=== PATIENT | male | born 1980 | race Caucasian/White ===

== ENCOUNTER 2018-03-11 19:42 | Emergency (ER) | payer BC, OTHER ==
[2018-03-11] MEDS ORDERED: Ampicillin/Sulbactam Na 3 GM in Sodium Chloride 0.9% 100 ML IV ONE (20:32)
--- NOTE | 2018-03-11 20:38 | EDM.PDOC ---
ED HPI GENERAL MEDICAL PROBLEM - General Chief Complaint: Skin Complaint Stated Complaint: LUMP IN GROIN AREA Time Seen by Provider: 03/11/18 20:16 Source of Information: Reports: Patient, RN Notes Reviewed History Limitations: Reports: No Limitations - History of Present Illness INITIAL COMMENTS - FREE TEXT/NARRATIVE: The patient states that he developed a painful bump to his right anterior medial buttock this past 03/09/2018. He states that he sat on the toilet, and felt an internal "pop", and ever since then, the redness and swelling has extended, now up to his right inguinal area. He has not noticed any drainage from the area. He has had a subjective fever. He reports low back pain, but denies any urinary symptoms. He states that he has been taking ibuprofen to control the pain. He has not attempted to treat the area, such as with poking it with a needle. No prior similar symptoms. The patient does not have a PCP. Treatments FOOD PACKER: Reports: Other (see below) Other Treatments FOOD PACKER: tylenol.motrin, bath soaks Right Groin Pain Score (Numeric/FACES): 7 - Related Data Allergies Allergy/AdvReac Type Severity Reaction Status Date / Time No Known Allergies Allergy Verified 03/11/18 20:18 Home Meds: Home Meds Amoxicillin/Potassium Clav [Augmentin 875-125 Tablet] 1 tab PO Q12H #20 tablet 03/11/18 [Rx] Past Medical History - Past Surgical History HEENT Surgical History: Reports: Oral Surgery (wisdom teeth extraction) Musculoskeletal Surgical History: Reports: Carpal Tunnel (bilateral) Social & Family History - Tobacco Use Smoking Status *Q: Current Every Day Smoker Years of Tobacco use: 19 Packs/Tins Daily: 1 Packs/Tins Daily Comment: Down from 1.5 ppd - Caffeine Use Caffeine Use: Reports: Coffee, Energy Drinks, Soda - Alcohol Use Alcohol Use History: No - Recreational Drug Use Recreational Drug Use: No - Living Situation & Occupation Living situation: Reports: Single, with Significant Other (Girlfriend) Occupation: Employed ([employer]) ED ROS GENERAL - Review of Systems Review Of Systems: ROS reveals no pertinent complaints other than HPI. ED EXAM, SKIN/RASH Exam: See Below Exam Limited By: No Limitations General Appearance: Alert, WD/WN, No Apparent Distress Rectal (Males) Exam: Other (Swelling, erythema, and tenderness to the medial anterior right buttock, that does not extend to the anus, but does extend anteriorly to the right inguinal area, most consistent with a perianal abscess) Course - Vital Signs Last Recorded V/S: Last Vital Signs Temp 36.7 C 03/11/18 20:21 Pulse 92 03/11/18 20:21 Resp 20 03/11/18 20:21 BP 102/68 03/11/18 20:21 Pulse Ox 97 03/11/18 20:21 - Orders/Labs/Meds Orders: Active Orders 24 hr Category Date Time Status Pelvis w Cont [CT] Stat Exams 03/11/18 20:30 Taken Sodium Chloride 0.9% [Normal Saline] 1,000 ml Med 03/11/18 20:45 Active IV ASDIRECTED Medication Orders Sodium Chloride (Normal Saline) 1,000 mls @ 150 mls/hr IV ASDIRECTED TODD Last Admin: 03/11/18 21:10 Dose: 150 mls/hr Labs: Laboratory Tests 03/11/18 03/11/18 Range/Units 20:41 20:41 WBC 33.70 H (4.23-9.07) K/mm3 RBC 5.23 (4.63-6.08) M/mm3 Hgb 14.2 (13.7-17.5) gm/L Hct 42.1 (40.1-51.0) % MCV 80.5 (79.0-92.2) fl MCH 27.2 (25.7-32.2) pg MCHC 33.7 (32.2-35.5) g/dl RDW Std Deviation 42.7 (35.1-43.9) fL Plt Count 308 (163-337) K/mm3 MPV 9.4 (9.4-12.3) fl Neutrophils % (Manual) 84 H (40-60) % Band Neutrophils % 0 (0-10) % Lymphocytes % (Manual) 6 L (20-40) % Atypical Lymphs % 0 % Monocytes % (Manual) 10 (2-10) % Eosinophils % (Manual) 0 L (0.8-7.0) % Basophils % (Manual) 0 L (0.2-1.2) Platelet Estimate Adequate Plt Morphology Comment Normal RBC Morph Comment Normal Sodium 137 (136-145) mEq/L Potassium 3.5 (3.5-5.1) mEq/L Chloride 101 (98-107) mEq/L Carbon Dioxide 25 (21-32) mEq/L Anion Gap 14.5 (5-15) BUN 14 (7-18) mg/dL Creatinine 1.4 H (0.7-1.3) mg/dL Est Cr Clr Drug Dosing 75.32 mL/min Estimated GFR (MDRD) 57 (>60) mL/min BUN/Creatinine Ratio 10.0 L (14-18) Glucose 113 H (74-106) mg/dL Calcium 8.6 (8.5-10.1) mg/dL Total Bilirubin 0.8 (0.2-1.0) mg/dL AST 13 L (15-37) U/L ALT 18 (16-63) U/L Alkaline Phosphatase 96 (46-116) U/L Total Protein 7.1 (6.4-8.2) g/dl Albumin 3.4 (3.4-5.0) g/dl Globulin 3.7 gm/dL Albumin/Globulin Ratio 0.9 L (1-2) Meds: Medications Generic Name Dose Route Start Last Admin Trade Name Freq PRN Reason Stop Dose Admin Sodium Chloride 1,000 mls @ 150 mls/hr 03/11/18 20:45 03/11/18 21:10 Normal Saline IV 150 mls/hr ASDIRECTED TODD Administration Discontinued Medications Generic Name Dose Route Start Last Admin Trade Name Freq PRN Reason Stop Dose Admin Ampicillin Sodium/Sulbactam 100 mls @ 200 mls/hr 03/11/18 20:32 03/11/18 21: 10 Sodium 3 gm/ Sodium Chloride IV 03/11/18 21:01 200 mls/hr ONETIME ONE Administration Iopamidol 125 ml 03/11/18 20:51 03/11/18 21:03 Isovue-300 (61%) IVPUSH 03/11/18 20:52 125 ml ONETIME ONE Administration Sodium Chloride 10 ml 03/11/18 20:51 03/11/18 21:04 Saline Flush FLUSH 03/11/18 20:52 10 ml ONETIME ONE Administration - Re-Assessments/Exams Free Text/Narrative Re-Assessment/Exam: 03/11/18 20:33 The patient has swelling, erythema, and tenderness to his right buttock, just lateral to the anterior gluteal cleft, that extends towards his right inguinal region. I suspect that the patient is suffering from a perianal infection, possibly an abscess. In addition to some blood work, I have ordered a CT scan of the pelvis with IV contrast to better elucidate the extent of the infection, and I have ordered Unasyn 3 g. 03/11/18 21:57 CT of the pelvis with IV contrast is read by [facility] as: Right posterior perineal 12 mm abscess. Subcutaneous fatty tissue inflammatory change. No soft tissue gas. 03/11/18 22:07 Test results discussed with the patient. I'm concerned about the patient's elevated WBC count of 33.7, however, there is 0% bandemia, therefore this is likely due to demargination. A prescription for Augmentin will be sent to the [facility] pharmacy, and I would like the patient to follow-up with Dr. Soler at the next available appointment, as treatment of this abscess may require drainage. Departure - Departure Time of Disposition: 22:09 Disposition: Home, Self-Care 01 Condition: Fair Clinical Impression: Perineal abscess - Discharge Information *PRESCRIPTION DRUG MONITORING PROGRAM REVIEWED*: Not Applicable *COPY OF PRESCRIPTION DRUG MONITORING REPORT IN PATIENT TEJAS: Not Applicable Referrals: Trevin Soler MD [Physician] - Forms: ED Department Discharge Additional Instructions: You were seen in the emergency room for pain, swelling, and redness to your right buttock, extending up to your right groin. Workup in the ER included blood work and a CT scan of your pelvis with IV contrast. The CT scan confirmed that you have an infection in the soft tissue of your buttock. You were treated with the IV antibiotic Unasyn in the ER. A prescription for the oral antibiotic Augmentin has been sent to the [facility], [address] [place], [place] [address], located just south and across the [address] from [facility]. Take one tablet every 12 hours, starting tomorrow morning, 03/12/2018, as prescribed. Finish the entire prescription unless told otherwise by a doctor. Take [id number] ibuprofen, 2-3 tablets (400-600 mg) every 8 hours, with food, as needed for discomfort Follow-up with the surgeon Dr. Trevin Soler at the next available appointment. If any other problems, please do not hesitate to return to the ER. - My Orders Last 24 Hours: My Active Orders 03/11/18 20:30 Pelvis w Cont [CT] Stat 03/11/18 20:45 Sodium Chloride 0.9% [Normal Saline] 1,000 ml IV ASDIRECTED - Assessment/Plan Last 24 Hours: My Active Orders 03/11/18 20:30 Pelvis w Cont [CT] Stat 03/11/18 20:45 Sodium Chloride 0.9% [Normal Saline] 1,000 ml IV ASDIRECTED
[2018-03-11] MEDS ORDERED: Sodium Chloride 0.9% 1,000 ML IV SCH (20:45)
[2018-03-11] MEDS ORDERED: Sodium Chloride 0.9% 10 ML Syringe FLUSH ONE (20:51)
[2018-03-11] MEDS ORDERED: Iopamidol 612 MG/ML 150 ML Bottle IVPUSH ONE (20:51)
--- NOTE | 2018-03-14 07:49 | CT ---
CT pelvis Technique: Multiple axial sections were obtained from above the iliac crests inferiorly through the pubic symphysis. Intravenous contrast was utilized. No oral contrast has been given. Findings: Small abnormality is seen within the medial right buttock below the skin measuring 2.0 cm which is felt compatible with a small superficial abscess. Surrounding inflammatory change is seen within the subcutaneous fat. No intrapelvic abnormality is seen. Appendix is normal in size. Bone window settings were reviewed which appear within normal limits for the patient's age. Impression: 1. Small superficial abscess within the medial right buttock with surrounding inflammatory change noted on the right side. Diagnostic code #3 I agree with preliminary report from [facility], finalized on 03/11/18, 10:24 PM Central Time [facility]
== END 2018-03-11 22:24 | disposition home or self-care (01) ==
LOC: JD.ED 19:42
DX: L02.215 Cutaneous abscess of perineum (principal); F17.210 Nicotine dependence, cigarettes, uncomplicated
CPT/HCPCS: 36415; 72193; 80053; 85007; 85027; 96361; 96365; 99284; J0295; J7030; J7040; J7050; Q9967

== ENCOUNTER 2018-03-13 20:44 | Inpatient (IN) | payer BC, OTHER ==
--- NOTE | 2018-03-13 21:55 | EDM.PDOC ---
ED HPI GENERAL MEDICAL PROBLEM - General Chief Complaint: Skin Complaint Stated Complaint: Groin pain here yesterday Time Seen by Provider: 03/13/18 20:47 Source of Information: Reports: Patient, Old Records (ED 03/11/2018), RN Notes Reviewed History Limitations: Reports: No Limitations - History of Present Illness INITIAL COMMENTS - FREE TEXT/NARRATIVE: Medical records indicate that the patient was seen by me in this ED on 2017 with a complaint at that time of a painful bump to his right anterior medial buttock that developed on 03/09/2018. He stated at that time that he had sat on the toilet on 03/09/2018 and felt an internal "pop", and that ever since then, the redness and swelling had extended, then up to his right inguinal area. He had not noticed any drainage. He had a subjective fever, but was afebrile in the ED. On examination, the patient had swelling, erythema, and tenderness to the medial anterior right buttock that did not extend to his anus , but did extend anteriorly to his right inguinal area. Workup in the ED included a CBC, CMP, and a CT of the pelvis with IV contrast. The patient's WBC count returned substantially elevated at 33.7, but with 0% bandemia. His creatinine was noted to be elevated at 1.4. The remainder of his blood work was unremarkable. The CT scan of his pelvis was read as a right posterior perineal 12 mm abscess, subcutaneous fatty tissue inflammatory change, no soft tissue gas. The patient was treated with 3 g of IV Unasyn, then discharged home with a prescription for Augmentin 875/125, 1 tab po Q 12 and a referral to follow up with Dr. Soler as an outpatient. The patient now returns to the ED, stating that his symptoms have worsened, despite taking the Augmentin as prescribed. The redness has extended to his scrotum, and the swelling has gotten worse. He believes that on his way to the ED tonight, around 20:45, something popped, and he can now feel liquid running down his leg. He again complains of subjective fever, but is afebrile here in the ED. He also states that he feels "disoriented, by which he means that he just doesn't feel right. The patient does not have a PCP. Right Pelvic Pain Score (Numeric/FACES): 10 - Related Data Allergies Allergy/AdvReac Type Severity Reaction Status Date / Time No Known Allergies Allergy Verified 03/11/18 20:18 Home Meds: Home Meds Amoxicillin/Potassium Clav [Augmentin 875-125 Tablet] 1 tab PO Q12H #20 tablet 03/11/18 [Rx] Past Medical History - Past Surgical History HEENT Surgical History: Reports: Oral Surgery (wisdom teeth extraction) Musculoskeletal Surgical History: Reports: Carpal Tunnel (bilateral) Social & Family History - Tobacco Use Smoking Status *Q: Current Every Day Smoker Years of Tobacco use: 19 Packs/Tins Daily: 1 Packs/Tins Daily Comment: Down from 1.5 ppd - Caffeine Use Caffeine Use: Reports: Coffee, Energy Drinks, Soda - Alcohol Use Alcohol Use History: No - Recreational Drug Use Recreational Drug Use: No - Living Situation & Occupation Living situation: Reports: Single, with Significant Other (Girlfriend) Occupation: Employed ([employer]) ED ROS GENERAL - Review of Systems Review Of Systems: ROS reveals no pertinent complaints other than HPI. ED EXAM, SKIN/RASH Exam: See Below Exam Limited By: No Limitations General Appearance: Alert, WD/WN, No Apparent Distress Skin: Other (There is significant swelling and erythema that extends from the right medial buttock, anteriorly, to the right inguinal area, involving the entire scrotum. There is an area of drainage from the medial buttock by the perineal cleft, draining pus.) Course - Vital Signs Last Recorded V/S: Last Vital Signs Temp 36.2 C 03/13/18 20:56 Pulse 98 03/13/18 22:25 Resp 18 03/13/18 22:25 BP 134/74 03/13/18 22:25 Pulse Ox 97 03/13/18 22:25 - Orders/Labs/Meds Orders: Active Orders 24 hr Category Date Time Status Admission Status [Patient Status] [ADT] Routine ADT 03/13/18 22:36 Ordered Clindamycin Phosphate [Cleocin] 900 mg Med 03/13/18 21:58 Active Sodium Chloride 0.9% [Normal Saline] 100 ml IV ONETIME Sodium Chloride 0.9% [Normal Saline] 1,000 ml Med 03/13/18 22:00 Active IV ASDIRECTED Medication Orders Clindamycin Phosphate 900 mg/ (Sodium Chloride) 106 mls @ 100 mls/hr IV ONETIME ONE Stop: 03/13/18 23:01 Last Admin: 03/13/18 22:12 Dose: 100 mls/hr Sodium Chloride (Normal Saline) 1,000 mls @ 100 mls/hr IV ASDIRECTED TODD Last Admin: 03/13/18 22:12 Dose: 100 mls/hr Meds: Medications Generic Name Dose Route Start Last Admin Trade Name Freq PRN Reason Stop Dose Admin Clindamycin Phosphate 900 mg/ 106 mls @ 100 mls/hr 03/13/18 21:58 03/13/18 22 :12 Sodium Chloride IV 03/13/18 23:01 100 mls/hr ONETIME ONE Administration Sodium Chloride 1,000 mls @ 100 mls/hr 03/13/18 22:00 03/13/18 22:12 Normal Saline IV 100 mls/hr ASDIRECTED TODD Administration Discontinued Medications Generic Name Dose Route Start Last Admin Trade Name Freq PRN Reason Stop Dose Admin Hydromorphone HCl 0.5 mg 03/13/18 22:01 03/13/18 22:17 Dilaudid IVPUSH 03/13/18 22:02 0.5 mg ONETIME ONE Administration - Re-Assessments/Exams Free Text/Narrative Re-Assessment/Exam: 03/13/18 21:52 The degree of erythema and swelling has expanded considerably since I saw him on 03/11/2018, indicating a failure of outpatient treatment. The patient will need to be admitted for IV antibiotics and surgical consultation. Case discussed with Dr. Soler at 21:49. He agrees to admit the patient, however, he stated that he will be going off-service in the morning, and that it will be Dr. Montgomery who sees him in the morning. He recommended that we treat the patient with clindamycin, keep him NPO, give him IV fluid, and pain medication. 03/13/18 21:59 I have ordered clindamycin 900 mg IV now, and will write bridge orders for 600 mg Q 8. Departure - Departure Time of Disposition: 21:53 Disposition: Admitted As Inpatient 68 Condition: Fair Clinical Impression: Perineal abscess, Failure of outpatient treatment - Discharge Information *PRESCRIPTION DRUG MONITORING PROGRAM REVIEWED*: Not Applicable *COPY OF PRESCRIPTION DRUG MONITORING REPORT IN PATIENT TEJAS: Not Applicable Referrals: Fredy Montgomery MD [Physician] - Trevin Soler MD [Physician] - - My Orders Last 24 Hours: My Active Orders 03/13/18 21:58 Clindamycin Phosphate [Cleocin] 900 mg Sodium Chloride 0.9% [Normal Saline] 100 ml IV ONETIME 03/13/18 22:00 Sodium Chloride 0.9% [Normal Saline] 1,000 ml IV ASDIRECTED 03/13/18 22:36 Admission Status [Patient Status] [ADT] Routine - Assessment/Plan Last 24 Hours: My Active Orders 03/13/18 21:58 Clindamycin Phosphate [Cleocin] 900 mg Sodium Chloride 0.9% [Normal Saline] 100 ml IV ONETIME 03/13/18 22:00 Sodium Chloride 0.9% [Normal Saline] 1,000 ml IV ASDIRECTED 03/13/18 22:36 Admission Status [Patient Status] [ADT] Routine
[2018-03-13] MEDS ORDERED: Clindamycin Phosphate 900 MG in Sodium Chloride 0.9% 100 ML IV ONE (21:58)
[2018-03-13] MEDS ORDERED: HYDROmorphone 0.5 MG/0.5 ML SYRINGE IVPUSH ONE (22:01)
[2018-03-13] MEDS: Sodium Chloride 0.9% 1,000 ML IV SCH (22:12)
[2018-03-13] MEDS ORDERED: Ondansetron 4 MG/2 ML SDV IVPUSH PRN (23:23)
[2018-03-13] MEDS ORDERED: Sodium Chloride 0.9% 1,000 ML IV SCH (23:30)
[2018-03-14] MEDS: HYDROmorphone 0.5 MG/0.5 ML Syringe IVPUSH PRN ×6 (00:26→21:29)
[2018-03-14] MEDS: Sodium Chloride 0.9% 1,000 ML IV SCH (02:44)
[2018-03-14] MEDS: Clindamycin Phosphate 600 MG in Sodium Chloride 0.9% 100 ML IV SCH ×3 (05:21→21:13)
--- NOTE | 2018-03-14 08:57 | PCM.PN ---
- General Info Date of Service: 03/14/18 - Patient Data Vitals - Most Recent: Last Vital Signs Temp 99.9 F 03/14/18 07:33 Pulse 85 03/14/18 07:33 Resp 16 03/14/18 07:33 BP 103/62 03/14/18 07:33 Pulse Ox 92 L 03/14/18 07:33 Weight - Most Recent: 82.781 kg I&O - Last 24 Hours: Intake & Output 03/13/18 03/14/18 03/14/18 23:59 07:59 15:59 Intake Total 464 Output Total 350 Balance 114 Lab Results Last 24 Hours: Laboratory Results - last 24 hr 03/14/18 03/14/18 Range/Units 05:15 05:15 WBC 19.46 H (4.23-9.07) K/mm3 RBC 4.54 L (4.63-6.08) M/mm3 Hgb 12.4 L (13.7-17.5) gm/L Hct 36.2 L (40.1-51.0) % MCV 79.7 (79.0-92.2) fl MCH 27.3 (25.7-32.2) pg MCHC 34.3 (32.2-35.5) g/dl RDW Std Deviation 41.9 (35.1-43.9) fL Plt Count 280 (163-337) K/mm3 MPV 10.4 (9.4-12.3) fl Sodium 137 (136-145) mEq/L Potassium 3.2 L (3.5-5.1) mEq/L Chloride 103 (98-107) mEq/L Carbon Dioxide 25 (21-32) mEq/L Anion Gap 12.2 (5-15) BUN 16 (7-18) mg/dL Creatinine 1.2 (0.7-1.3) mg/dL Est Cr Clr Drug Dosing 87.87 mL/min Estimated GFR (MDRD) > 60 (>60) mL/min BUN/Creatinine Ratio 13.3 L (14-18) Glucose 102 (74-106) mg/dL Calcium 8.2 L (8.5-10.1) mg/dL Total Bilirubin 0.4 (0.2-1.0) mg/dL AST 12 L (15-37) U/L ALT 14 L (16-63) U/L Alkaline Phosphatase 97 (46-116) U/L Total Protein 6.5 (6.4-8.2) g/dl Albumin 2.5 L (3.4-5.0) g/dl Globulin 4.0 gm/dL Albumin/Globulin Ratio 0.6 L (1-2) Med Orders - Current: Current Medications Hydromorphone HCl (Dilaudid) 0.5 mg IVPUSH Q1H PRN PRN Reason: Pain Last Admin: 03/14/18 08:15 Dose: 0.5 mg Clindamycin Phosphate 600 mg/ (Sodium Chloride) 104 mls @ 100 mls/hr IV Q8HR [facility] Last Admin: 03/14/18 05:21 Dose: 100 mls/hr Sodium Chloride (Normal Saline) 1,000 mls @ 100 mls/hr IV ASDIRECTED [facility] Last Admin: 03/14/18 05:21 Dose: 100 mls/hr Ondansetron HCl (Zofran) 4 mg IVPUSH Q6H PRN PRN Reason: Nausea Discontinued Medications Hydromorphone HCl (Dilaudid) 0.5 mg IVPUSH ONETIME ONE Stop: 03/13/18 22:02 Last Admin: 03/13/18 22:17 Dose: 0.5 mg Clindamycin Phosphate 900 mg/ (Sodium Chloride) 106 mls @ 100 mls/hr IV ONETIME ONE Stop: 03/13/18 23:01 Last Admin: 03/13/18 22:12 Dose: 100 mls/hr Sodium Chloride (Normal Saline) 1,000 mls @ 100 mls/hr IV ASDIRECTED [facility] Last Infusion: 03/14/18 02:44 Dose: Infused - Problem List Review Problem List Initiated/Reviewed/Updated: Yes - My Orders Last 24 Hours: My Active Orders 03/14/18 08:53 Verify Patient Consent Obtain [RC] ASDIRECTED 03/14/18 08:55 Schedule Procedure [COMM] Urgent - Plan Plan:: H&P dictated JMB
--- NOTE | 2018-03-14 09:20 | PCM.PREANE ---
Preanesthetic Assessment - Anesthesia/Transfusion/Family Hx Anesthesia History: Prior Anesthesia Without Reaction Family History of Anesthesia Reaction: No Transfusion History: No Prior Transfusion(s) Intubation History: Unknown - Review of Systems General: Fever, Chills Pulmonary: No Symptoms (smoker: 1.5 ppd/times 19 years) Cardiovascular: No Symptoms Gastrointestinal: No Symptoms, Decreased Appetite Neurological: No Symptoms Other: Reports: None - Physical Assessment NPO Status Date: 03/13/18 NPO Status Time: 15:00 Pulse: 85 O2 Sat by Pulse Oximetry: 92 Respiratory Rate: 16 Blood Pressure: 103/62 Temperature: 37.7 C Vital Signs: Last Vital Signs Temp 37.7 C 03/14/18 07:33 Pulse 85 03/14/18 07:33 Resp 16 03/14/18 07:33 BP 103/62 03/14/18 07:33 Pulse Ox 92 L 03/14/18 07:33 Height: 1.78 m Weight: 82.781 kg ASA Class: 2 Mental Status: Alert & Oriented x3 Airway Class: Mallampati = 2 Dentition: Reports: Normal Dentition, Caries Thyro-Mental Finger Breadths: 3 Mouth Opening Finger Breadths: 3 ROM/Head Extension: Full Lungs: Clear to Auscultation, Normal Respiratory Effort Cardiovascular: Regular Rate, Regular Rhythm, No Murmurs - Lab Values: Laboratory Last Values WBC 19.46 K/mm3 (4.23-9.07) H 03/14/18 05:15 RBC 4.54 M/mm3 (4.63-6.08) L 03/14/18 05:15 Hgb 12.4 gm/L (13.7-17.5) L 03/14/18 05:15 Hct 36.2 % (40.1-51.0) L 03/14/18 05:15 MCV 79.7 fl (79.0-92.2) 03/14/18 05:15 MCH 27.3 pg (25.7-32.2) 03/14/18 05:15 MCHC 34.3 g/dl (32.2-35.5) 03/14/18 05:15 RDW Std Deviation 41.9 fL (35.1-43.9) 03/14/18 05:15 Plt Count 280 K/mm3 (163-337) 03/14/18 05:15 MPV 10.4 fl (9.4-12.3) 03/14/18 05:15 Sodium 137 mEq/L (136-145) 03/14/18 05:15 Potassium 3.2 mEq/L (3.5-5.1) L 03/14/18 05:15 Chloride 103 mEq/L (98-107) 03/14/18 05:15 Carbon Dioxide 25 mEq/L (21-32) 03/14/18 05:15 Anion Gap 12.2 (5-15) 03/14/18 05:15 BUN 16 mg/dL (7-18) 03/14/18 05:15 Creatinine 1.2 mg/dL (0.7-1.3) 03/14/18 05:15 Est Cr Clr Drug Dosing 87.87 mL/min 03/14/18 05:15 Estimated GFR (MDRD) > 60 mL/min (>60) 03/14/18 05:15 BUN/Creatinine Ratio 13.3 (14-18) L 03/14/18 05:15 Glucose 102 mg/dL (74-106) 03/14/18 05:15 Calcium 8.2 mg/dL (8.5-10.1) L 03/14/18 05:15 Total Bilirubin 0.4 mg/dL (0.2-1.0) 03/14/18 05:15 AST 12 U/L (15-37) L 03/14/18 05:15 ALT 14 U/L (16-63) L 03/14/18 05:15 Alkaline Phosphatase 97 U/L (46-116) 03/14/18 05:15 Total Protein 6.5 g/dl (6.4-8.2) 03/14/18 05:15 Albumin 2.5 g/dl (3.4-5.0) L 03/14/18 05:15 Globulin 4.0 gm/dL 03/14/18 05:15 Albumin/Globulin Ratio 0.6 (1-2) L 03/14/18 05:15 All labs reviewed and noted and within acceptable ranges to proceed with scheduled procedure. - Allergies Allergies/Adverse Reactions: Allergies Allergy/AdvReac Type Severity Reaction Status Date / Time No Known Allergies Allergy Verified 03/11/18 20:18 - Anesthesia Plan Pre-Op Medication Ordered: None - Acknowledgements Anesthesia Type Planned: General Anesthesia Pt an Appropriate Candidate for the Planned Anesthesia: Yes Alternatives and Risks of Anesthesia Discussed w Pt/Guardian: Yes Pt/Guardian Understands and Agrees with Anesthesia Plan: Yes PreAnesthesia Questionnaire - Past Health History Medical/Surgical History: Denies Medical/Surgical History - Past Surgical History HEENT Surgical History: Reports: Oral Surgery Musculoskeletal Surgical History: Reports: Carpal Tunnel - SUBSTANCE USE Smoking Status *Q: Current Every Day Smoker Tobacco Use Within Last Twelve Months: Cigarettes Second Hand Smoke Exposure: No Recreational Drug Use History: No - HOME MEDS Home Medications: Home Meds Amoxicillin/Potassium Clav [Augmentin 875-125 Tablet] 1 tab PO Q12H #20 tablet 03/11/18 [Rx] - CURRENT (IN HOUSE) MEDS Current Meds: Current Medications Hydromorphone HCl (Dilaudid) 0.5 mg IVPUSH Q1H PRN PRN Reason: Pain Last Admin: 03/14/18 08:15 Dose: 0.5 mg Clindamycin Phosphate 600 mg/ (Sodium Chloride) 104 mls @ 100 mls/hr IV Q8HR [facility] Last Admin: 03/14/18 05:21 Dose: 100 mls/hr Sodium Chloride (Normal Saline) 1,000 mls @ 100 mls/hr IV ASDIRECTED [facility] Last Admin: 03/14/18 05:21 Dose: 100 mls/hr Ondansetron HCl (Zofran) 4 mg IVPUSH Q6H PRN PRN Reason: Nausea Discontinued Medications Hydromorphone HCl (Dilaudid) 0.5 mg IVPUSH ONETIME ONE Stop: 03/13/18 22:02 Last Admin: 03/13/18 22:17 Dose: 0.5 mg Clindamycin Phosphate 900 mg/ (Sodium Chloride) 106 mls @ 100 mls/hr IV ONETIME ONE Stop: 03/13/18 23:01 Last Admin: 03/13/18 22:12 Dose: 100 mls/hr Sodium Chloride (Normal Saline) 1,000 mls @ 100 mls/hr IV ASDIRECTED [facility] Last Infusion: 03/14/18 02:44 Dose: Infused
[2018-03-14] MEDS ORDERED: Midazolam 1 MG/ML 2 ML SDV ONE (09:47)
[2018-03-14] MEDS ORDERED: Propofol 200 MG/20 ML SDV ONE (09:47)
[2018-03-14] MEDS ORDERED: fentaNYL 250 MCG/5 ML SDV ONE (09:48)
[2018-03-14] MEDS ORDERED: Ketamine 500 mg/10 ML MDV ONE (09:48)
[2018-03-14] MEDS ORDERED: Lidocaine 1% with EPINEPHrine 1:100,000 20 ML MDV ONE (09:58)
[2018-03-14] MEDS ORDERED: Bupivacaine 0.5%/EPINEPHrine 1:200,000 50 ML MDV ONE (09:58)
[2018-03-14] MEDS: Lactated Ringers 1,000 ML IV SCH ×2 (10:15→13:01)
[2018-03-14] MEDS ORDERED: Ondansetron 4 MG/2 ML SDV ONE (10:38)
[2018-03-14] MEDS ORDERED: Lidocaine 1% 4 ML ONE (10:38)
[2018-03-14] MEDS ORDERED: Dexamethasone 4 MG/ML 5 ML MDV ONE (10:38)
[2018-03-14] MEDS ORDERED: HYDROmorphone 0.5 MG/0.5 ML Syringe ONE (10:42)
--- NOTE | 2018-03-14 10:59 | PCM.OPNOTE ---
- General Post-Op/Procedure Note Date of Surgery/Procedure: 03/14/18 Operative Procedure(s): I&D rt groin abscess Pre Op Diagnosis: rt groin abscess Post-Op Diagnosis: Same Anesthesia Technique: General LMA Primary Surgeon: Fredy Montgomery EBL in mLs: 25 Complications: None Condition: Good Free Text/Narrative:: Intake & Output 03/13/18 03/14/18 03/14/18 23:59 07:59 15:59 Intake Total 464 Output Total 350 Balance 114
--- NOTE | 2018-03-14 11:21 | PCM.POSTAN ---
POST ANESTHESIA ASSESSMENT - MENTAL STATUS Mental Status: Alert, Oriented - VITAL SIGNS Pulse Rate: 90 SaO2: 96 Resp Rate: 10 Blood Pressure: 111/68 Temperature: 37.6 C - RESPIRATORY Respiratory Status: Respiratory Rate WNL, Airway Patent, O2 Saturation Stable, Supplemental Oxygen - CARDIOVASCULAR CV Status: Pulse Rate WNL, Blood Pressure Stable - GASTROINTESTINAL GI Status: No Symptoms - PAIN Pain Score: 0 - POST OP HYDRATION Hydration Status: Adequate & Stable
[2018-03-14] MEDS ORDERED: Ondansetron 4 MG/2 ML SDV IVPUSH PRN (11:22)
[2018-03-14] MEDS ORDERED: fentaNYL 100 MCG/2 ML SDV IVPUSH PRN (11:22)
[2018-03-14] MEDS ORDERED: HYDROmorphone 0.5 MG/0.5 ML Syringe IVPUSH ONE (11:22)
[2018-03-14] MEDS ORDERED: diphenhydrAMINE 50 MG/ML SDV IVPUSH PRN (11:22)
[2018-03-14] MEDS ORDERED: Meperidine 50 MG/ML Vial IVPUSH PRN (11:22)
[2018-03-14] MEDS ORDERED: Albuterol 0.083% 2.5 MG/3 ML Neb Soln NEB ONE (12:32)
--- NOTE | 2018-03-14 14:41 | HP ---
DATE OF ADMISSION: 03/13/2018 HISTORY OF PRESENT ILLNESS: This is a 38-year-old who came in yesterday to the ER with pain, swelling, erythema, and tenderness to the medial anterior right buttocks that extended into the groin with swelling and draining and is most prominent in the right inguinal area. CT scan was done in the ER, has right posterior perineal 12 abscess in the subcuticular tissue and elevated white count of 33,000. The patient's states he was in the emergency room on the with complaint at that time of pain from bump in the right anteromedial buttocks developed on the . He stated that he went to the toilet on the , felt a popping noise, and ever since there is redness and swelling that has developed and extended, it is now draining. The patient was seen in the emergency room and started with antibiotics. He had in his previous emergency room discharge given IV Unasyn and Augmentin with followup visit, but he returned to the ER. PAST MEDICAL HISTORY: [place] tooth extraction, bilateral carpal tunnel surgery, current everyday smoker, coffee drinker and soda. REVIEW OF SYSTEMS: No chest pain, shortness of breath, cough, hoarseness, wheezing, fainting, weakness, numbness, convulsions, nausea, vomiting, or indigestion. CURRENT MEDICATIONS: Per medication reconciliation form, which consist of clindamycin. FAMILY HISTORY: Negative. PHYSICAL EXAMINATION: VITAL SIGNS: Temperature is 36, pulse 98, respirations 18, and blood pressure 134/74. HEENT: Eyes, sclerae white. Extraocular muscle motion normal. Oral cavity, healthy mucous membranes with mouth and tongue. NECK: Supple. No nodes. No thyromegaly. Trachea midline. LUNGS: Clear. No rales, rhonchi, fremitus, or dullness. HEART: Heart tones regular rate. No S3, S4, jugular venous distention, or murmurs. ABDOMEN: Soft. No tenderness, guarding, rebound, organomegaly, or pulsatile masses. UPPER AND LOWER EXTREMITIES: No angulation deformities. Groin shows a lot of swelling in the right inguinal region with drainage, some erythema extending down into the perineum. LABORATORY DATA: Shows a white count now 19,000, hemoglobin 12, and platelet count is 280. Chemistry shows low potassium 3.7, sodium 137, CO2 of 25, BUN is 16, and creatinine 1.2. Total bilirubin normal. AST is 12. CT scan which was done on the shows a small superficial abscess in the medial right buttocks with surrounding inflammatory changes noted on the right side. It measures 2 cm. There has been a significant change since the CT scan. ASSESSMENT: Abscess in the perineum extending into the right groin. Possible plan is for incision and drainage and culture. Risks and complications discussed with the patient. He understands and consents. MMODAL /[id number]
[2018-03-15] MEDS: HYDROmorphone 0.5 MG/0.5 ML Syringe IVPUSH PRN ×3 (00:01→09:30)
[2018-03-15] MEDS: Clindamycin Phosphate 600 MG in Sodium Chloride 0.9% 100 ML IV SCH (05:00)
--- NOTE | 2018-03-15 08:09 | PCM48HPAN ---
Post Anesthesia Note - EVALUATION WITHIN 48HRS OF ANESTHETIC Vital Signs in Normal Range: Yes Patient Participated in Evaluation: Yes Respiratory Function Stable: Yes Airway Patent: Yes Cardiovascular Function Stable: Yes Hydration Status Stable: Yes Pain Control Satisfactory: Yes Nausea and Vomiting Control Satisfactory: Yes Mental Status Recovered: Yes - COMMENTS/OBSERVATIONS Free Text/Narrative:: Doing well. Patient denies any anesthetic complications
--- NOTE | 2018-03-15 08:52 | OR ---
DATE OF OPERATION: 03/14/2018 SURGEON: Fredy Montgomery MD PREOPERATIVE DIAGNOSIS: Right groin abscess. POSTOPERATIVE DIAGNOSIS: Right groin abscess. OPERATION PERFORMED: Incision and drainage done under general anesthetic with local infiltration of 50:50 mixture of 0.5% Marcaine and 1% Xylocaine. ESTIMATED BLOOD LOSS: 25 mL. DESCRIPTION OF PROCEDURE: The patient was taken to the operating room, placed in a supine position, given a general anesthetic, and an LMA was placed. Placed in lithotomy position. The area was examined and showed an area of drainage in the groin crease inferiorly. It was not connected with the anal canal. Rectal exam was performed, that did not show any perirectal abscess. This area of drainage, the pocket extended up for about 16 cm to the groin on the right. It extended later to be into the subcuticular tissue, but not into the fascia. The patient was then prepped and draped off in a sterile fashion and the area from the draining point into the groin was opened up for about 16 cm. The area was Pulsavac'd and bleeding points were controlled with electrocautery. It was then packed with Kerlix gauze. The patient tolerated the procedure and sent to recovery room in a stable condition. ANESTHESIA: General. MMODAL /[id number]
[2018-03-15] MEDS ORDERED: Nicotine 21 MG/24 Hr Patch TRDERM SCH (11:30)
--- NOTE | 2018-03-15 12:20 | PCM.SURGPN ---
- General Info Date of Service: 03/15/18 Functional Status: Reports: Pain Controlled - Review of Systems General: Reports: No Symptoms Gastrointestinal: Reports: Constipation - Patient Data Vitals - Most Recent: Last Vital Signs Temp 97.9 F 03/15/18 09:07 Pulse 59 L 03/15/18 05:01 Resp 21 H 03/15/18 09:07 BP 100/67 03/15/18 09:07 Pulse Ox 94 L 03/15/18 05:01 Weight - Most Recent: 84.504 kg I&O - Last 24 Hours: Intake & Output 03/14/18 03/15/18 03/15/18 23:59 07:59 15:59 Intake Total 520 1000 Output Total 900 1500 Balance -380 -500 Lab Results Last 24 Hrs: Laboratory Results - last 24 hr 03/14/18 Range/Units 05:15 Neutrophils % (Manual) 60 (40-60) % Band Neutrophils % 23 H (0-10) % Lymphocytes % (Manual) 13 L (20-40) % Atypical Lymphs % 0 % Monocytes % (Manual) 4 (2-10) % Eosinophils % (Manual) 0 L (0.8-7.0) % Basophils % (Manual) 0 L (0.2-1.2) Differential Comment See note Toxic Granulation 1+ slight Platelet Estimate Adequate RBC Morph Comment Normal Toby Results Last 24 Hrs: Microbiology 03/14/18 Unknown Gram Stain - Final Groin, Right 03/14/18 10:42 Gram Stain - Final Groin, Right Med Orders - Current: Current Medications Hydromorphone HCl (Dilaudid) 0.5 mg IVPUSH Q1H PRN PRN Reason: Pain Last Admin: 03/15/18 09:30 Dose: 0.5 mg Clindamycin Phosphate 600 mg/ (Sodium Chloride) 104 mls @ 100 mls/hr IV Q8HR TODD Last Admin: 03/15/18 05:00 Dose: 100 mls/hr Miscellaneous Information (Remove Patch) 0 ea TRDERM DAILY TODD Nicotine (Habitrol) 21 mg TRDERM DAILY TODD Ondansetron HCl (Zofran) 4 mg IVPUSH Q6H PRN PRN Reason: Nausea Discontinued Medications Albuterol (Proventil Neb Soln) 2.5 mg NEB ONETIME ONE Stop: 03/14/18 12:33 Last Admin: 03/14/18 12:44 Dose: 2.5 mg Bupivacaine HCl/Epinephrine Bitart (Marcaine 0.5%/Epinephrine 1:200,000) Confirm Administered Dose 50 ml .ROUTE .STK-MED ONE Stop: 03/14/18 09:59 Last Admin: 03/14/18 10:55 Dose: 5 ml Diphenhydramine HCl (Benadryl) 25 mg IVPUSH Q6H PRN PRN Reason: Pruritis Stop: 03/14/18 19:00 Fentanyl (Sublimaze) 50 mcg IVPUSH Q5M PRN PRN Reason: Pain Stop: 03/14/18 19:00 Hydromorphone HCl (Dilaudid) 0.5 mg IVPUSH ONETIME ONE Stop: 03/13/18 22:02 Last Admin: 03/13/18 22:17 Dose: 0.5 mg Hydromorphone HCl (Dilaudid) 0.5 mg IVPUSH ONETIME ONE Stop: 03/14/18 11:23 Last Admin: 03/14/18 16:43 Dose: Not Given Clindamycin Phosphate 900 mg/ (Sodium Chloride) 106 mls @ 100 mls/hr IV ONETIME ONE Stop: 03/13/18 23:01 Last Admin: 03/13/18 22:12 Dose: 100 mls/hr Sodium Chloride (Normal Saline) 1,000 mls @ 100 mls/hr IV ASDIRECTED [facility] Last Infusion: 03/14/18 02:44 Dose: Infused Sodium Chloride (Normal Saline) 1,000 mls @ 100 mls/hr IV ASDIRECTED [facility] Last Admin: 03/14/18 05:21 Dose: 100 mls/hr Lactated Ringer's (Ringers, Lactated) 1,000 mls @ 125 mls/hr IV ASDIRECTED [facility] Last Admin: 03/14/18 13:01 Dose: 125 mls/hr Lidocaine/Epinephrine (Xylocaine 1% With Epinephrine 1:100,000) Confirm Administered Dose 20 ml .ROUTE .STK-MED ONE Stop: 03/14/18 09:59 Last Admin: 03/14/18 10:55 Dose: 5 ml Meperidine HCl (Meperidine) 12.5 mg IVPUSH ONETIME PRN PRN Reason: Shivering Stop: 03/14/18 18:00 Ondansetron HCl (Zofran) 4 mg IVPUSH ONETIME PRN PRN Reason: Nausea/Vomiting Stop: 03/14/18 19:00 - Exam Wound/Incisions: Healing Well, Erythema (improved and receding ) General: Alert, Oriented - Problem List Review Problem List Initiated/Reviewed/Updated: Yes - My Orders Last 24 Hours: Active Orders 24 hr Category Date Time Status Communication Order [RC] DAILY Care 03/15/18 10:00 Active Oxygen Therapy [RC] ASDIRECTED Care 03/14/18 11:22 Active Pulse Oximetry [RC] ASDIRECTED Care 03/14/18 11:22 Active RT Aerosol Therapy [RC] ASDIRECTED Care 03/14/18 12:32 Active Regular Diet [DIET] Diet 03/14/18 Dinner Active Nicotine [Habitrol] Med 03/15/18 11:30 Active 21 mg TRDERM DAILY Remove Patch Med 03/16/18 09:00 Active 0 ea TRDERM DAILY Medication Orders Hydromorphone HCl (Dilaudid) 0.5 mg IVPUSH Q1H PRN PRN Reason: Pain Last Admin: 03/15/18 09:30 Dose: 0.5 mg Admin: 03/15/18 05:02 Dose: 0.5 mg Admin: 03/15/18 00:01 Dose: 0.5 mg Admin: 03/14/18 21:29 Dose: 0.5 mg Admin: 03/14/18 19:01 Dose: 0.5 mg Admin: 03/14/18 08:15 Dose: 0.5 mg Admin: 03/14/18 05:21 Dose: 0.5 mg Admin: 03/14/18 02:40 Dose: 0.5 mg Admin: 03/14/18 00:26 Dose: 0.5 mg Clindamycin Phosphate 600 mg/ (Sodium Chloride) 104 mls @ 100 mls/hr IV Q8HR TODD Last Admin: 03/15/18 05:00 Dose: 100 mls/hr Infusion: 03/14/18 22:16 Dose: 100 mls/hr Admin: 03/14/18 21:13 Dose: 100 mls/hr Infusion: 03/14/18 16:50 Dose: 100 mls/hr Admin: 03/14/18 15:47 Dose: 100 mls/hr Infusion: 03/14/18 06:24 Dose: 100 mls/hr Admin: 03/14/18 05:21 Dose: 100 mls/hr Miscellaneous Information (Remove Patch) 0 ea TRDERM DAILY TODD Nicotine (Habitrol) 21 mg TRDERM DAILY TODD Ondansetron HCl (Zofran) 4 mg IVPUSH Q6H PRN PRN Reason: Nausea - Plan Plan (Free Text/Narrative):: dressing changed by nurses and wound is plate cleaner, the pain from the infection has improved with the I&D surgical site healing ass improved cultures reviewed in lab and show staph and possible an anaerob note patient is very angrey and wishes to go he feels that the incision was not necessary and that another method could have been used although is not able to say what other treatment would be available. he is concerned that he may not be able to work and he is demanding immediate discharge so that he can go home to [place]. He does not have a doctor there. He feels that he was not informed about the packing. I did state that I saw him, as testified by the nursing staff, after surgery last night and did tell him the large incision that was placed in his rt groin necessary to completely drain the abscess and that packing or VAC used to treat the open wound. He state that this never happened and that I am am not telling the truth. I have ask for a physician's name so I can send the information to this person so good care can be given. Patient does not want this and request again immediate discharge. will discharge the patient on clindamycin and ask that he give us a name of a physician to send health information to. CARMEN
--- NOTE | 2018-03-15 14:04 | PCM.SURGPN ---
- General Info Date of Service: 03/15/18 - Patient Data Vitals - Most Recent: Last Vital Signs Temp 97.9 F 03/15/18 09:07 Pulse 59 L 03/15/18 05:01 Resp 21 H 03/15/18 09:07 BP 100/67 03/15/18 09:07 Pulse Ox 94 L 03/15/18 05:01 Weight - Most Recent: 84.504 kg I&O - Last 24 Hours: Intake & Output 03/14/18 03/15/18 03/15/18 23:59 07:59 15:59 Intake Total 520 1000 Output Total 900 1500 Balance -380 -500 Toby Results Last 24 Hrs: Microbiology 03/14/18 Unknown Gram Stain - Final Groin, Right 03/14/18 10:42 Gram Stain - Final Groin, Right Anaerobic Culture - Preliminary 03/13/18 23:15 Wound Culture - Preliminary Groin, Right Staphylococcus Aureus Med Orders - Current: Current Medications Hydromorphone HCl (Dilaudid) 0.5 mg IVPUSH Q1H PRN PRN Reason: Pain Last Admin: 03/15/18 09:30 Dose: 0.5 mg Clindamycin Phosphate 600 mg/ (Sodium Chloride) 104 mls @ 100 mls/hr IV Q8HR TODD Last Admin: 03/15/18 05:00 Dose: 100 mls/hr Miscellaneous Information (Remove Patch) 0 ea TRDERM DAILY TODD Nicotine (Habitrol) 21 mg TRDERM DAILY TODD Ondansetron HCl (Zofran) 4 mg IVPUSH Q6H PRN PRN Reason: Nausea Discontinued Medications Albuterol (Proventil Neb Soln) 2.5 mg NEB ONETIME ONE Stop: 03/14/18 12:33 Last Admin: 03/14/18 12:44 Dose: 2.5 mg Bupivacaine HCl/Epinephrine Bitart (Marcaine 0.5%/Epinephrine 1:200,000) Confirm Administered Dose 50 ml .ROUTE .STK-MED ONE Stop: 03/14/18 09:59 Last Admin: 03/14/18 10:55 Dose: 5 ml Diphenhydramine HCl (Benadryl) 25 mg IVPUSH Q6H PRN PRN Reason: Pruritis Stop: 03/14/18 19:00 Fentanyl (Sublimaze) 50 mcg IVPUSH Q5M PRN PRN Reason: Pain Stop: 03/14/18 19:00 Hydromorphone HCl (Dilaudid) 0.5 mg IVPUSH ONETIME ONE Stop: 03/13/18 22:02 Last Admin: 03/13/18 22:17 Dose: 0.5 mg Hydromorphone HCl (Dilaudid) 0.5 mg IVPUSH ONETIME ONE Stop: 03/14/18 11:23 Last Admin: 03/14/18 16:43 Dose: Not Given Clindamycin Phosphate 900 mg/ (Sodium Chloride) 106 mls @ 100 mls/hr IV ONETIME ONE Stop: 03/13/18 23:01 Last Admin: 03/13/18 22:12 Dose: 100 mls/hr Sodium Chloride (Normal Saline) 1,000 mls @ 100 mls/hr IV ASDIRECTED [facility] Last Infusion: 03/14/18 02:44 Dose: Infused Sodium Chloride (Normal Saline) 1,000 mls @ 100 mls/hr IV ASDIRECTED [facility] Last Admin: 03/14/18 05:21 Dose: 100 mls/hr Lactated Ringer's (Ringers, Lactated) 1,000 mls @ 125 mls/hr IV ASDIRECTED [facility] Last Admin: 03/14/18 13:01 Dose: 125 mls/hr Lidocaine/Epinephrine (Xylocaine 1% With Epinephrine 1:100,000) Confirm Administered Dose 20 ml .ROUTE .STK-MED ONE Stop: 03/14/18 09:59 Last Admin: 03/14/18 10:55 Dose: 5 ml Meperidine HCl (Meperidine) 12.5 mg IVPUSH ONETIME PRN PRN Reason: Shivering Stop: 03/14/18 18:00 Ondansetron HCl (Zofran) 4 mg IVPUSH ONETIME PRN PRN Reason: Nausea/Vomiting Stop: 03/14/18 19:00 - Problem List Review Problem List Initiated/Reviewed/Updated: Yes - My Orders Last 24 Hours: Active Orders 24 hr Category Date Time Status Communication Order [RC] DAILY Care 03/15/18 10:00 Active Regular Diet [DIET] Diet 03/14/18 Dinner Active Nicotine [Habitrol] Med 03/15/18 11:30 Active 21 mg TRDERM DAILY Remove Patch Med 03/16/18 09:00 Active 0 ea TRDERM DAILY Medication Orders Hydromorphone HCl (Dilaudid) 0.5 mg IVPUSH Q1H PRN PRN Reason: Pain Last Admin: 03/15/18 09:30 Dose: 0.5 mg Admin: 03/15/18 05:02 Dose: 0.5 mg Admin: 03/15/18 00:01 Dose: 0.5 mg Admin: 03/14/18 21:29 Dose: 0.5 mg Admin: 03/14/18 19:01 Dose: 0.5 mg Admin: 03/14/18 08:15 Dose: 0.5 mg Admin: 03/14/18 05:21 Dose: 0.5 mg Admin: 03/14/18 02:40 Dose: 0.5 mg Admin: 03/14/18 00:26 Dose: 0.5 mg Clindamycin Phosphate 600 mg/ (Sodium Chloride) 104 mls @ 100 mls/hr IV Q8HR TODD Last Admin: 03/15/18 05:00 Dose: 100 mls/hr Infusion: 03/14/18 22:16 Dose: 100 mls/hr Admin: 03/14/18 21:13 Dose: 100 mls/hr Infusion: 03/14/18 16:50 Dose: 100 mls/hr Admin: 03/14/18 15:47 Dose: 100 mls/hr Infusion: 03/14/18 06:24 Dose: 100 mls/hr Admin: 03/14/18 05:21 Dose: 100 mls/hr Miscellaneous Information (Remove Patch) 0 ea TRDERM DAILY [facility] Nicotine (Habitrol) 21 mg TRDERM DAILY TODD Ondansetron HCl (Zofran) 4 mg IVPUSH Q6H PRN PRN Reason: Nausea - Plan Plan (Free Text/Narrative):: discharged AMA discharge summary dictated JMB
--- NOTE | 2018-03-16 08:35 | DISCH ---
ADMISSION DATE: 03/13/2018 DISCHARGE DATE: 03/15/2018 HISTORY: This is a 38-year-old, who came in yesterday in the ER with swelling, pain, erythema, and tenderness in the medial anterior right groin and buttocks that extended into the groin with swelling and draining as most prominent on the right inguinal area. CT scan was done in the ER showing an abscess in the subcuticular tissue. The patient had been seen in the emergency room on the and given antibiotics, but returned because of pain. PHYSICAL EXAMINATION: GENERAL: At the time of admission revealed alert and cooperative male. EYES, EARS, NOSE, AND THROAT: Unremarkable. NECK: Supple. LUNGS: Clear. HEART: Tones regular rate. SKIN: Abscess was noted in the right groin. It extended from the distal end of the perineum up to the groin crease. It was quite tender and draining with erythema. The patient was in moderate distress. HOSPITAL COURSE: The patient after informed consent was obtained, detailing the place of the incision and size, was taken to the operating room where a large abscess was encountered, partially drained. There was undermining of skin and so a large incision was performed to allow complete drainage of the abscess. This was packed open. The patient's postoperative course, he was visited that evening and the pain and tenderness have resolved, inflammation decreased. He was informed at that time of the size of the incision and the need for packing and/or VAC placement. Following day, the patient was quite angry and this was detailed in the progress notes. He insisted on discharge, stating he felt unsafe and did not like the care and felt that the wrong surgery. He was informed that leaving at this time AMA would compromise wound care antibiotics might be given. Although his cultures were checked and suggested staph and appeared to be responding to Cleocin. He was discharged with Cleocin 300 mg 4 times a day for a 5-day course and will be followed up with a doctor of his choice in [place]. DISCHARGE DIAGNOSIS: Abscess of the right groin, status post incision and drainage. DISPOSITION: Discharged AMA. CONDITION ON DISCHARGE: Improved. DIET: Regular. ACTIVITY: No work. DISCHARGE MEDICATIONS: Cleocin 300 mg q.i.d. FOLLOW-UP: Follow up with a doctor of his choice in [place]. MMODAL /[id number]
== END 2018-03-15 14:00 | disposition still patient (30) | DRG 364 ==
LOC: JD.ED 20:44 → JD.MS 22:36
PROVIDERS: ADMIT Surgery; ATTEND Surgery
PROC: 0J9C0ZZ Drainage of Pelvic Region Subcutaneous Tissue and Fascia, Open Approach (ICD-10-PCS; principal; 2018-03-14)
DX: L02.214 Cutaneous abscess of groin (principal); B95.8 Unspecified staphylococcus as the cause of diseases classified elsewhere; Z91.19 Patient's noncompliance with other medical treatment and regimen; F17.210 Nicotine dependence, cigarettes, uncomplicated
CPT/HCPCS: 00920; 36415; 80053; 85007; 85027; 87070; 87075; 87077; 87186; 87205; 87641; 94640; 94760; 96365; 96375; 99284; 99284-25; J1100; J1170; J2001; J2250; J2405; J2704; J3010; J3490; J7030; J7040; J7120